=== PATIENT | male | born 1985 | race Two or more races ===

== ENCOUNTER 2017-08-09 14:52 | Emergency (ER) | payer SELFPAY ==
[~2017-08-09] VITALS: Ht 185.4 cm; Wt 82.2 kg
[2017-08-09 15:09] VITALS: BP 127/78
[2017-08-09 16:17] LABS: HEMATOCRIT 46.2 % (39.2-51.8); HEMOGLOBIN 15.6 g/dL (13.7-18.0); WHITE BLOOD COUNT 8.8 x10^3/uL (3.4-10)
[2017-08-09 16:27] LABS: BLOOD UREA NITROGEN 11 mg/dL (7-18)
[2017-08-09] MEDS ORDERED: AZITHROMYCIN 500 MG TABLET PO ONE (17:30)
[2017-08-09] MEDS ORDERED: CEFTRIAXONE 250 MG IM ONE (17:30)
[2017-08-09] MEDS ORDERED: CEFTRIAXONE 250 MG ONE (17:36)
[2017-08-09] MEDS ORDERED: LIDOCAINE 1%, 10ML ONE (17:37)
[2017-08-09] MEDS ORDERED: AZITHROMYCIN 250 MG TABLET ONE (17:37)
== END 2017-08-09 18:39 | disposition left against medical advice (07) ==
LOC: ED 18:33
DX: N34.1 Nonspecific urethritis (principal)
CPT/HCPCS: 36415; 80048; 81001; 82040; 85025; 87086; 87491; 87591; 96372; 99284; J0696; 87077

== ENCOUNTER 2017-09-22 11:41 | Emergency (ER) | payer MEDICAID, OTHER ==
[~2017-09-22] VITALS: Ht 185.4 cm; Wt 80.2 kg
[2017-09-22] MEDS ORDERED: FAMOTIDINE 20 MG/2 ML IVP ONE (12:30)
[2017-09-22] MEDS ORDERED: SODIUM CHLORIDE FLUSH 10ML SYR IVF ONE (12:30)
[2017-09-22] MEDS ORDERED: MORPHINE SULFATE 4 MG/ML, 1ML IVPush PRN (12:30)
[2017-09-22] MEDS ORDERED: ONDANSETRON 2MG/ML, 2ML IVPush ONE (12:30)
[2017-09-22] MEDS ORDERED: SODIUM CHLORIDE 0.9% 1,000ML IVBOLUS ONE (12:30)
[2017-09-22] MEDS ORDERED: MORPHINE SULFATE 4 MG/ML, 1ML ONE (12:39)
[2017-09-22] MEDS ORDERED: FAMOTIDINE 20 MG/2 ML ONE (12:39)
[2017-09-22] MEDS ORDERED: ONDANSETRON 2MG/ML, 2ML ONE (12:39)
[2017-09-22 12:40] LABS: BASOPHILS # (AUTO) 0.04 x10^3/uL (0-0.1); BASOPHILS % (AUTO) 1 % (0-1); EOSINOPHILS % (AUTO) 5 % (1-7); LYMPHOCYTES # (AUTO) 1.72 x10^3/uL (1-3.4); LYMPHOCYTES % (AUTO) 27 % (22-44); MD NO; MEAN CORPUSCULAR HEMOGLOBIN 31.4 pg (27.5-34.5); MEAN CORPUSCULAR VOLUME 92.4 fL (81-97); MEAN PLATELET VOLUME 8.1 fL (7.4-10.4); MONOCYTES % (AUTO) 5 % (2-9); NEUTROPHILS % (AUTO) 63 % (42-75); PLATELET COUNT 224 x10^3/uL (130-400); RED BLOOD COUNT 5.06 x10^6/uL (4.38-5.82); RED CELL DISTRIBUTION WIDTH 13.6 % (9.4-14.8)
[2017-09-22 12:52] LABS: ALANINE AMINOTRANSFERASE 17 U/L (12-78); ALBUMIN 3.7 g/dL (3.4-5.0); ANION GAP 8 mmol/L (5-15); CALCIUM 8.7 mg/dL (8.5-10.1); CHLORIDE 109 mmol/L (98-107); CREATININE 0.77 mg/dL (0.7-1.3)
[2017-09-22 12:54] LABS: ALKALINE PHOSPHATASE 76 U/L (45-117); BILIRUBIN,TOTAL 0.3 mg/dL (0.2-1.0); TOTAL PROTEIN 7.3 g/dL (6.4-8.2)
[2017-09-22 13:35] VITALS: BP 118/90
[2017-09-22 14:54] LABS: MICROSCOPIC AUTO
[2017-09-22 14:59] LABS: CULTURE INDICATED? YES
== END 2017-09-22 14:44 | disposition home or self-care (01) ==
LOC: ED 14:28
DX: R10.13 Epigastric pain (principal); F17.210 Nicotine dependence, cigarettes, uncomplicated
CPT/HCPCS: 36415; 76700; 80053; 81001; 83690; 85025; 87086; 96361; 96374; 96375; 99285; J2405; J7030; S0028

== ENCOUNTER 2017-10-31 20:10 | Emergency (ER) | payer OTHER ==
[~2017-10-31] VITALS: Ht 186.7 cm; Wt 77.7 kg
[2017-10-31 20:11] VITALS: BP 111/78
== END 2017-10-31 22:12 | disposition home or self-care (01) ==
LOC: ED 22:06
DX: F15.129 Other stimulant abuse with intoxication, unspecified (principal)
CPT/HCPCS: 99281

== ENCOUNTER 2017-11-17 13:54 | Emergency (ER) | payer MEDICAID, OTHER ==
[~2017-11-17] VITALS: Ht 188 cm; Wt 82.0 kg
[2017-11-17] MEDS ORDERED: CEFTRIAXONE 250 MG IM ONE (14:30)
[2017-11-17] MEDS ORDERED: AZITHROMYCIN 500 MG TABLET PO ONE (14:30)
[2017-11-17 15:21] LABS: MEAN CORPUSCULAR HGB CONC 33.9 g/dL (33.2-36.2); MEAN CORPUSCULAR VOLUME 94.4 fL (81-97); MEAN PLATELET VOLUME 7.3 fL (7.4-10.4); PLATELET COUNT 268 x10^3/uL (130-400); RED CELL DISTRIBUTION WIDTH 13.1 % (9.4-14.8)
[2017-11-17 15:29] LABS: ALBUMIN 3.2 g/dL (3.4-5.0); ANION GAP 7 mmol/L (5-15); CALCIUM 8.4 mg/dL (8.5-10.1); CHLORIDE 108 mmol/L (98-107); CREATININE 0.78 mg/dL (0.7-1.3)
[2017-11-17] MEDS ORDERED: CEFTRIAXONE 250 MG ONE (15:36)
[2017-11-17] MEDS ORDERED: AZITHROMYCIN 250 MG TABLET ONE (15:37)
[2017-11-17 15:48] LABS: BASOPHILS # (AUTO) 0.02 x10^3/uL (0-0.1); BASOPHILS % (AUTO) 0 % (0-1); EOSINOPHILS # (AUTO) 0.28 x10^3/uL (0-0.4); EOSINOPHILS % (AUTO) 2 % (1-7); LYMPHOCYTES # (AUTO) 1.64 x10^3/uL (1-3.4); LYMPHOCYTES % (AUTO) 9 % (22-44); MD SCAN; MONOCYTES # (AUTO) 0.64 x10^3/uL (0.2-0.8); MONOCYTES % (AUTO) 4 % (2-9); NEUTROPHILS # (AUTO) 15.48 x10^3/uL (1.8-6.8); NEUTROPHILS % (AUTO) 86 % (42-75)
[2017-11-17] MEDS ORDERED: HYDROcodone/APAP 5/325 TABLET ONE (15:58)
[2017-11-17] MEDS ORDERED: HYDROcodone/APAP 5/325 TABLET PO ONE (16:00)
[2017-11-17 16:36] VITALS: BP 122/69
[2017-11-17 16:49] LABS: MICROSCOPIC INDICATED
[2017-11-17 17:15] LABS: CULTURE INDICATED? YES
== END 2017-11-17 16:38 | disposition home or self-care (01) ==
LOC: ED 16:15
DX: N45.1 Epididymitis (principal); K40.90 Unilateral inguinal hernia, without obstruction or gangrene, not specified as recurrent
CPT/HCPCS: 36415; 76857; 76870; 80048; 81001; 82040; 85025; 87086; 87491; 87591; 96372; 99285; J0696

== ENCOUNTER 2018-09-05 03:31 | Emergency (ER) | payer SELFPAY ==
[~2018-09-05] VITALS: Ht 185.4 cm; Wt 93.0 kg
[2018-09-05 03:35] VITALS: BP 128/83
[2018-09-05] MEDS ORDERED: LIDOCAINE-MPF 1%, 5ML ONE (03:50)
--- NOTE | 2018-09-05 03:55 | NUR ---
PT REFUSED TO HAVE GC SWAB DONE. DR SMITH AWARE.
[2018-09-05] MEDS ORDERED: IBUPROFEN 200 MG TABLET PO ONE (04:00)
[2018-09-05] MEDS ORDERED: LIDOCAINE-MPF 1%, 5ML INFIL ONE (04:00)
== END 2018-09-05 04:00 | disposition left against medical advice (07) ==
LOC: ED 03:57
DX: L02.511 Cutaneous abscess of right hand (principal); Z72.9 Problem related to lifestyle, unspecified
CPT/HCPCS: 10060; 99283